=== PATIENT | female | born 1995 | race Caucasian/White ===

== ENCOUNTER 2017-12-28 15:23 | Emergency (ER) | payer BC ==
[~2017-12-28] VITALS: Ht 165.1 cm; Wt 50.0 kg
[2017-12-28 15:28] VITALS: TEMP 97.6
[2017-12-28 15:54] LABS: BASO % 0.2 % (0.0-2.0); EOS # 0.2 (0.0-0.7); EOS % 1.8 % (0-4.0); GRAN # 6.4 (1.4-6.5); GRAN % 70.6 % (42.2-75.2); HEMOGLOBIN 12.6 g/dl (12.5-16.0); LYMPH # 1.8 (1.2-3.4); LYMPH % 19.8 % (20.0-51.0); MEAN CELL VOLUME 84 fl (80.0-100.0); MEAN CORPUSCULAR HEMOGLOBIN 29 pg (27.0-31.0); MEAN CORPUSCULAR HGB CONC 35 g/dl (33.0-37.0); MEAN PLATELET VOLUME 10.5 fl (7.4-10.4); MONO # 0.7 (0.1-0.6); MONO % 7.4 % (1.7-9.3); PLATELET COUNT 208 K/mm3 (130-400); RED BLOOD COUNT 4.34 M/mm3 (4.10-5.30); REDCELL DISTRIBUTION WIDTH-CV 12.2 % (11.5-14.5)
[2017-12-28 15:57] LABS: HEMATOCRIT 36.5 % (37.0-47.0)
[2017-12-28 16:05] LABS: ALBUMIN 4.5 gm/dL (3.5-5.0); BILIRUBIN,TOTAL 0.7 mg/dL (0.0-1.0); CALCIUM 9.6 mg/dL (8.4-10.2); CREATININE, serum 0.48 mg/dL (0.52-1.25); POTASSIUM 3.6 mmol/L (3.4-5.0); TOTAL PROTEIN 7.9 gm/dL (6.4-8.2)
[2017-12-28 16:12] LABS: MUCOUS Present /lpf; PH 5 (5-8); SQUAMOUS EPITHELIAL 0-2 /hpf; URINE APPEARANCE Cloudy; URINE BACTERIA Many /hpf; URINE BILIRUBIN Negative (NEGATIVE); URINE BLOOD Negative (NEGATIVE); URINE COLOR Amber; URINE GLUCOSE Negative (NEGATIVE); URINE KETONE Negative (NEGATIVE); URINE LEUKOCYTE ESTERASE Negative (NEGATIVE); URINE NITRATE Positive (NEGATIVE); URINE PROTEIN(semi-quant) 1+ (NEGATIVE); URINE RBC 0-2 /hpf; URINE UROBILINOGEN >=4.0 mg/dL (NEGATIVE)
[2017-12-28] MEDS ORDERED: CEPHALEXIN500 M1 PO ×3 (16:13→17:33)
[2017-12-28 16:19] LABS: COLLECTION METHOD CLEAN CATCH
[2017-12-28 17:44] VITALS: BP 132/66; PULSE 76
== END 2017-12-28 18:00 | disposition home or self-care (01) ==
LOC: COL.ER 15:23
PROVIDERS: Emergency Medicine
DX: O23.91 Unspecified genitourinary tract infection in pregnancy, first trimester (principal); O21.9 Vomiting of pregnancy, unspecified; O26.891 Other specified pregnancy related conditions, first trimester; L02.01 Cutaneous abscess of face; Z90.89 Acquired absence of other organs; Z3A.09 9 weeks gestation of pregnancy
CPT/HCPCS: A4216; J0696; J2405; J7030

== ENCOUNTER 2018-01-27 21:12 | Emergency (ER) | payer BC ==
[~2018-01-27] VITALS: Ht 162.6 cm; Wt 50.9 kg
[~2018-01-27 21:12] MED LIST: CEPHALEXIN500 M1 PO
[2018-01-27 21:16] VITALS: BP 135/94; TEMP 97.7
[2018-01-27] MEDS ORDERED: CEPHALEXIN500 M1 PO (22:53)
[2018-01-27] MEDS ORDERED: BACTROBAN NASA0.9 GM NS (23:02)
[2018-01-27 23:33] VITALS: PULSE 70
[2018-01-30] MEDS ORDERED: CLEOCIN HCL300 MG PO (15:32)
== END 2018-01-27 23:33 | disposition home or self-care (01) ==
LOC: COL.ER 21:12
DX: O23.591 Infection of other part of genital tract in pregnancy, first trimester (principal); Z3A.14 14 weeks gestation of pregnancy

== ENCOUNTER 2018-06-13 15:51 | Outpatient (CLI) | payer BC ==
[~2018-06-13] VITALS: Ht 165.1 cm; Wt 60.9 kg
[~2018-06-13 15:51] MED LIST changes: +BACTROBAN NASA0.9 GM NS; +CLEOCIN HCL300 MG PO
[2018-06-13 15:55] VITALS: BP 119/73; PULSE 70; TEMP 97.8
[2018-06-13 16:06] VITALS: BP 119/73; PULSE 70; TEMP 97.8
--- NOTE | 2018-06-13 16:20 | NUR ---
1600 PATIENT HERE FOR COMPLAINTS OF FEELING DIZZY AT WORK. EFM ON FHT 120'S BABY VERY ACTIVE AND ACCELERATIONS NOTED. ASSESSMENT COMPLETED. VS WNL. SVE 0/40/HIGH. LAB STAFF AT BEDSIDE FOR LABS ORDERED BY PATIENT DENIES NEEDS AT THIS TIME.
[2018-06-13 16:22] LABS: COLLECTION METHOD CLEAN CATCH
--- NOTE | 2018-06-13 16:22 | NUR ---
1620 DR CHUA AT BEDSIDE AND VIEWED STRIP AT THIS TIME. ORDERS TO DISMISS PATIENT TO HOME TO FOLLOW UP WITH DR BELL IF LABS ARE WNL.
[2018-06-13 16:27] LABS: HEMOGLOBIN 10.2 g/dl (12.5-16.0); MEAN CELL VOLUME 85 fl (80.0-100.0); MEAN CORPUSCULAR HEMOGLOBIN 28 pg (27.0-31.0); MEAN CORPUSCULAR HGB CONC 33 g/dl (33.0-37.0); MEAN PLATELET VOLUME 10.2 fl (7.4-10.4); PLATELET COUNT 186 K/mm3 (130-400); RED BLOOD COUNT 3.63 M/mm3 (4.10-5.30); REDCELL DISTRIBUTION WIDTH-CV 12.1 % (11.5-14.5)
[2018-06-13 16:29] LABS: HEMATOCRIT 30.8 % (37.0-47.0)
[2018-06-13 16:34] LABS: MUCOUS Present /lpf; PH 5 (5-8); URINE APPEARANCE Hazy; URINE BACTERIA None Seen /hpf; URINE BILIRUBIN Negative (NEGATIVE); URINE BLOOD Negative (NEGATIVE); URINE COLOR Yellow; URINE GLUCOSE Negative (NEGATIVE); URINE KETONE Negative (NEGATIVE); URINE LEUKOCYTE ESTERASE Negative (NEGATIVE); URINE NITRATE Negative (NEGATIVE); URINE PROTEIN(semi-quant) Negative (NEGATIVE); URINE RBC 0-2 /hpf; URINE UROBILINOGEN Negative (NEGATIVE)
[2018-06-13 16:39] LABS: ALANINE AMINOTRANSFERASE < 6 U/L (9-52); ALBUMIN 3.3 gm/dL (3.5-5.0); ALKALINE PHOSPHATASE 158 U/L (50-136); ANION GAP 9 mmol/L (7-16); AST,SGOT 23 U/L (15-37); BILIRUBIN,TOTAL 0.3 mg/dL (0.0-1.0); BLOOD UREA NITROGEN 10 mg/dL (7-17); CALCIUM 8.4 mg/dL (8.4-10.2); CARBON DIOXIDE 23 mmol/L (22-30); CHLORIDE 108 mmol/L (98-107); CREATININE, serum 0.49 (0.52-1.25); GLUCOSE 100 mg/dL (74-106); POTASSIUM 3.2 mmol/L (3.4-5.0); SODIUM 140 mmol/L (137-145); TOTAL PROTEIN 6.7 gm/dL (6.4-8.2)
--- NOTE | 2018-06-13 16:47 | NUR ---
1650 ALL LABS CALLED TO DR CHUA. ORDERS TO DISMISS TO HOME AT THIS TIME. ALL DISCHARGE INSTRUCTIONS GIVEN TO PATIENT AND WITH VERBAL UNDERSTANDNING. DENIES NEEDS AT THIS TIME.
== END 2018-06-13 16:52 | disposition home or self-care (01) ==
LOC: LDRO 15:51 → LDR 15:53 → LDRO 16:52
PROVIDERS: Obstetrics & Gynecology
DX: O99.89 Other specified diseases and conditions complicating pregnancy, childbirth and the puerperium (principal); R42 Dizziness and giddiness; Z3A.33 33 weeks gestation of pregnancy
CPT/HCPCS: OP

== ENCOUNTER 2018-07-15 09:33 | Emergency (ER) | payer BC ==
[~2018-07-15] VITALS: Ht 165.1 cm; Wt 63.6 kg
[2018-07-15 09:44] VITALS: TEMP 98.1
--- NOTE | 2018-07-15 10:18 | NUR ---
0957- EFM and TOCO appled and tracing. Pt states she was out checking chickens and slipped and fell on her butt, caught her fall with left arm. Pt complains of left arm pain, denies abdominal cramping or pain. Denies falling on abd. +FM since falling and FM seen by this RN while applying monitors. Pt also denies VB, LOF, or complications with . 38+2, G1L0. She sees Dr Gan and has next appointment on WednesdayJuly 20. 1018- Category I FHR tracing noted, accels with moderate variability. Occational variable noted coming off acceleration. No UCs noted.
[2018-07-15] MEDS ORDERED: NORCO 325 MG-51 TAB PO (10:30)
--- NOTE | 2018-07-15 10:35 | NUR ---
1035- Dr Gan called and updated on Pt status, Category I FHR tracing. MD requests Pt come to LDR for 2hrs of FM after being cleared by ED.
[2018-07-15 11:19] VITALS: BP 116/65; PULSE 80
[2018-07-15] MEDS ORDERED: VALTREX 50500 MG/TAB PO (11:46)
== END 2018-07-15 11:20 | disposition home or self-care (01) ==
LOC: COL.ER 09:33
DX: O9A.213 Injury, poisoning and certain other consequences of external causes complicating pregnancy, third trimester (principal); S52.102A Unspecified fracture of upper end of left radius, initial encounter for closed fracture; Z3A.38 38 weeks gestation of pregnancy; Z90.49 Acquired absence of other specified parts of digestive tract; W19.XXXA Unspecified fall, initial encounter; Y92.009 Unspecified place in unspecified non-institutional (private) residence as the place of occurrence of the external cause
CPT/HCPCS: Q4050

== ENCOUNTER 2018-07-15 11:35 | Outpatient (CLI) | payer BC ==
[~2018-07-15] VITALS: Ht 165.1 cm; Wt 59.1 kg
--- NOTE | 2018-07-15 11:30 | NUR ---
1130- Pt arrives on unit via wheelchair after being cleared by ED. Pt fell this morning on her butt and caught herself with her left arm. Dx with a left radial head fracture. Pt is splinted and in a sling. She transfers well into labor bed. EFM and TOCO on and tracing. Pt denies hitting her belly during or after the fall. Pt denies VB, LOF, or abd cramping. Assessment completed. Call light within reach.
[~2018-07-15 11:35] MED LIST changes: +NORCO 325 MG-51 TAB PO
[2018-07-15 11:39] VITALS: BP 123/73; PULSE 71; TEMP 98.5
[2018-07-15] MEDS ORDERED: VALTREX 50500 MG/TAB PO (11:46)
[2018-07-15 13:00] VITALS: BP 117/73; PULSE 59
[2018-07-15 13:30] VITALS: BP 110/64; PULSE 65
== END 2018-07-15 14:00 | disposition home or self-care (01) ==
LOC: LDRO 11:35 → LDR 11:36 → LDRO 14:00
DX: Z34.83 Encounter for supervision of other normal pregnancy, third trimester (principal); Z3A.38 38 weeks gestation of pregnancy
CPT/HCPCS: OP

== ENCOUNTER 2018-07-27 12:09 | Inpatient (IN) | payer BC ==
[~2018-07-27] VITALS: Ht 165.1 cm; Wt 64.1 kg
[2018-07-27] VITALS (41 sets, daily range): BP systolic 12–142; BP diastolic 53–83; PULSE 67–92; TEMP 97.3–98.7
[~2018-07-27 12:09] MED LIST changes: +VALTREX 50500 MG/TAB PO
--- NOTE | 2018-07-27 12:15 | NUR ---
Pt here for scheduled induction of labor and admitted to [facility]. G2L0, 40.0 weeks gestation. Pt in office today at the [facility] and neontal pericardial effusion noted on ultrasound. Pt states baby is active, denies any contractions. Pt to [facility], explained. Pt broke her elbow two weeks ago and has left arm in a sling. 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 Pt with hx of HSV, on valtrex po now. No open lesions noted or seen today. Assessment complete. IV started to left hand, blood drawn and then LR started and infusing without difficulty. Consents signed. 1315:FHR reactive, pitocin started at 2mu.
--- NOTE | 2018-07-27 13:25 | NUR ---
Dr Gan here and at bedside, reviews FHR monitor strip. SVE: /0. AROM, clear fluid noted. unable to place a scalp electrode on per physician, will attempt at a different time.
[2018-07-27 14:09] LABS: BASO % 0.2 % (0.0-2.0); EOS % 0.5 % (0-4.0); GRAN # 6.5 (1.4-6.5); GRAN % 74.4 % (42.2-75.2); HEMOGLOBIN 10.7 g/dl (12.5-16.0); LYMPH # 1.4 (1.2-3.4); LYMPH % 15.8 % (20.0-51.0); MEAN CELL VOLUME 82 fl (80.0-100.0); MEAN CORPUSCULAR HEMOGLOBIN 27 pg (27.0-31.0); MEAN CORPUSCULAR HGB CONC 32 g/dl (33.0-37.0); MEAN PLATELET VOLUME 11.1 fl (7.4-10.4); MONO # 0.7 (0.1-0.6); MONO % 8.2 % (1.7-9.3); PLATELET COUNT 198 K/mm3 (130-400); RED BLOOD COUNT 4.04 M/mm3 (4.10-5.30)
--- NOTE | 2018-07-27 15:15 | NUR ---
Dr Gan here and at bedside. SVE: 2-370/0. Pt breathing through contractions, rates 5/10.
--- NOTE | 2018-07-27 18:25 | NUR ---
Pt crying, anxious, shaking.
--- NOTE | 2018-07-27 18:33 | NUR ---
[facility] ORDER ENTRY TECHNICIAN into room for epidural placement. Pt continues anxious and crying, asking "does the epidural hurt" PHARMACY ORDER ENTRY TECHNICIAN and this RN provide education and emotional support. Pt to edge of bed for epidural placement. See anesthesia record for placement and dosing information.
--- NOTE | 2018-07-27 19:00 | NUR ---
Pt states "I still feel the contractions but they don't hurt. My right leg is numb, did I get too much medicine? I think my lips are numb" SPO2 monitor applied, 98% on room air, encouraged pt to work on relaxing and slowing breathing down.
[2018-07-28] VITALS (24 sets, daily range): BP systolic 103–139; BP diastolic 54–86; PULSE 61–118; TEMP 98.1–98.7
--- NOTE | 2018-07-28 02:00 | NUR ---
Pt reports "I feel alot of pressure in my butt" SVE as noted.
--- NOTE | 2018-07-28 02:05 | NUR ---
Dr Harrell, medical records receptionist in house, updated on labor progress. Dr Harrell in to visit with pt about expectations, plan of care for baby.
--- NOTE | 2018-07-28 02:50 | NUR ---
Pt reports increasing pressure. SVE ant rim.
--- NOTE | 2018-07-28 03:00 | NUR ---
SVE complete, practise push with good maternal effort and moves baby well. 0306 Dr Gan called to come for delivery.
--- NOTE | 2018-07-28 03:29 | NUR ---
Dr Gan into room, pt set up for delivery. 0333 Delivery of girl after reduction of nuchal cord x3 by Dr Gan. Pt and family loving and excited.
--- NOTE | 2018-07-28 03:42 | NUR ---
Placenta delivers spont and intact with 3 vessel cord. Pitocin gtt to bolus rate. Fundal massage by Dr So firmpatricio uterus. Perineal repair begun. Pt crying, tolerating repair poorly. 0350 Local to perineum by Dr So to complete repair. 0355 Perineal repair complete. pericare complete, ice pack to perineum, bed together.
--- NOTE | 2018-07-28 07:10 | NUR ---
Patient ambulates to bathroom with standby assist. Patient able to void. Pericare taught and provided. New gown on. Patient ambulates to room 208. Sitting up in rocking chair to feed .
[2018-07-29 07:34] VITALS: BP 98/46; PULSE 76; TEMP 98.1
[2018-07-29] MEDS ORDERED: IBU600 MG PO (09:15)
--- NOTE | 2018-07-29 10:30 | NUR ---
Initial visit; Parents thanked for offering congratulations for the of their daughter. Software Program Manager thanked family for choosing [facility].
[2018-07-29 14:18] LABS: TOXOPLASMA AB, IGG Negative (Negative); TOXOPLASMA AB, IGM Negative (Negative)
== END 2018-07-29 15:14 | disposition home or self-care (01) | DRG 806 ==
LOC: OB 12:09 → LDR 12:09 → OB 07-28 07:20
PROVIDERS: ADMIT Obstetrics & Gynecology
PROC: 10E0XZZ Delivery of Products of Conception, External Approach (ICD-10-PCS; principal; 2018-07-28)
PROC: 0W8NXZZ Division of Female Perineum, External Approach (ICD-10-PCS; 2018-07-28)
PROC: 10907ZC Drainage of Amniotic Fluid, Therapeutic from Products of Conception, Via Natural or Artificial Opening (ICD-10-PCS; 2018-07-28)
PROC: 3E033VJ Introduction of Other Hormone into Peripheral Vein, Percutaneous Approach (ICD-10-PCS; 2018-07-28)
DX: O35.8XX0 Maternal care for other (suspected) fetal abnormality and damage, not applicable or unspecified (principal); O98.52 Other viral diseases complicating childbirth; Z37.0 Single live birth; B00.89 Other herpesviral infection; O99.62 Diseases of the digestive system complicating childbirth; K21.9 Gastro-esophageal reflux disease without esophagitis; O99.343 Other mental disorders complicating pregnancy, third trimester; F41.9 Anxiety disorder, unspecified; O69.1XX0 Labor and delivery complicated by cord around neck, with compression, not applicable or unspecified; Z3A.40 40 weeks gestation of pregnancy
CPT/HCPCS: J2590; J7120